=== PATIENT | female | born 1925 | race Caucasian/White ===

== ENCOUNTER 2016-12-22 11:47 | Observation (INO) ==
[2016-12-22] MEDS ORDERED: Ipratropium/Albuterol Neb 3 ML IH ONE (12:26)
[2016-12-22 12:51] LABS: Hematocrit 34.5 % (35.3-44.9); Mean Corpuscular HGB Conc 31.9 g/dL (31.6-35.5); Mean Corpuscular Hemoglobin 28.6 pg (28.0-33.3); Mean Corpuscular Volume 89.6 fL (83.0-100.0); Mean Platelet Volume 10.6 fL (9.4-12.4); Platelet Count 184 K/mcL (140-400); Red Blood Count 3.85 M/mcL (3.82-4.97); Red Cell Distribution Width 13.8 % (11.5-14.5)
[2016-12-22 13:03] LABS: INR 1.2; Prothrombin Time 13.1 Seconds (9.4-12.1)
[2016-12-22 13:04] LABS: BUN/Creatinine Ratio 36 (6-26); Blood Urea Nitrogen 22 mg/dL (7-20); Calcium 8.5 mg/dL (8.6-10.8); Carbon Dioxide 23 mEq/L (19-29); Chloride 105 mEq/L (98-109); Glucose 118 mg/dL (70-99); Osmolality,Calculated 288 (280-300); Potassium 4.1 mEq/L (3.5-4.5); Sodium 137 mEq/L (136-145); eGFR For African Americans > 60 (> 60); eGFR For Non-African Americans > 60 (> 60)
[2016-12-22 13:19] LABS: Lymphocytes # 1.4 K/mcL (0.6-4.6); Macrocytosis Present (Not Present); Neutrophils # 8.7 K/mcL (1.6-8.9); Platelet Estimate Normal (Normal)
[2016-12-22 13:20] LABS: Anisocytosis 1+ (Not Present)
[2016-12-22 13:25] LABS: Activated Partial Thrombo Time 16.6 Seconds (26.0-36.0)
--- NOTE | 2016-12-22 13:52 | Emergency Department Note ---
Disposition Clinical Impression: Influenza A Disposition: Admitted As Inpatient Referrals: Nayeli Murillo DO [Primary Care Provider] - Forms: ED Satisfaction Letter URI/Sore Throat HPI - General Chief Complaint: ED Fever Stated Complaint: cold/fever Time Seen by Provider: 12/22/16 11:55 Source: patient Limitations: other Nursing Notes Reviewed: Yes Vital Signs Reviewed: Yes - History of Present Illness Pt Subjective Complaint: fever, cough Onset (ago): day(s) (1) Duration: constant Severity: moderate Improves with: nothing Worsens with: nothing Associated symptoms: Reports: fever, chills, myalgias, nasal congestion, sore throat Treatments prior to arrival: none - Related Data Home Medications Medication Instructions Recorded Confirmed Atenolol 10/12/15 GlipiZIDE 10/12/15 Insulin 10/12/15 Librium 10/12/15 Lisinopril 10/12/15 Nitrofurantoin 10/12/15 Previous Rx's Medication Instructions Recorded Fluticasone Propionate Nasal 2 spray NS DAILY 7 Days 08/17/15 [Flonase] Meclizine [Antivert] 12.5 mg PO TID 10 Days 08/17/15 Nitrofurantoin (BID) [Macrobid] 100 mg PO BID 5 Days 12/01/15 Phenazopyridine [Pyridium] 100 mg PO TID 2 Days 12/01/15 Levofloxacin [Levaquin] 500 mg PO DAILY #6 tablet 01/16/16 Allergies Allergy/AdvReac Type Severity Reaction Status Date / Time latex Allergy Hives Verified 12/01/15 19:13 Penicillins Allergy Hives Verified 12/01/15 19:13 Sulfa (Sulfonamide Allergy Hives Verified 12/01/15 19:13 Antibiotics) All systems ED: reviewed and negative except as stated. Constitutional: Reports: fever, chills Gastrointestinal: Denies: nausea, vomiting, diarrhea Integumentary: Denies: rash Neurological: Denies: headache URI PMH - Past Medical History Medical history: Reports: cancer, diabetes, hypertension Psychiatric history: Reports: anxiety, depression - Social History Smoking Status: Never smoker Alcohol use: Reports: none Drug use: Reports: none Physical Exam - General Limitations: other General appearance: alert, in no apparent distress - Head Head exam: atraumatic, normocephalic, normal inspection - Eye Eye exam: Present: normal appearance, PERRL, EOMI - Expanded Eye Exam Pupils: Left: reactive - ENT ENT exam: other (Has rhinorrhea/congestion) - Expanded ENT Exam External ear exam: Present: other (Patient profoundly deaf) Mouth exam: Present: normal external inspection Teeth exam: Present: normal inspection Throat exam: Present: normal inspection - Neck Neck exam: Present: normal inspection, full ROM, trachea midline - Chest Chest inspection: Present: normal inspection, symmetric chest wall rise - Respiratory Respiratory exam: Present: other (Worse rhonchorous cough) - Cardiovascular Cardiovascular exam: Present: regular rate, normal rhythm, normal heart sounds - Abdominal Exam Abdominal exam: Present: soft, Non-Tender. Absent: tenderness, distention, guarding, rebound, rigidity - Extremities Exam Extremities exam: Present: normal inspection, full ROM. Absent: tenderness, pedal edema - Expanded Upper Extremity Exam Shoulder exam: Present: normal inspection, full ROM Arm exam: Present: normal inspection, full ROM Elbow exam: Present: normal inspection, full ROM Forearm/Wrist exam: Present: normal inspection, full ROM Hand exam: Present: normal inspection, full ROM Vascular exam: Normal: capillary refill, radial pulse - Expanded Lower Extremity Exam Hip/Pelvis exam: Present: normal inspection, full ROM Upper leg exam: Present: normal inspection, full ROM Knee exam: Present: normal inspection, full ROM Lower leg exam: Present: normal inspection, full ROM Ankle exam: Present: normal inspection, full ROM Foot/toe exam: Present: normal inspection, full ROM Neurovascular/Tendon exam: Absent: motor deficit, sensory deficit, tendon deficit - Back Exam Back exam: Present: normal inspection, full ROM. Absent: tenderness - Neurological Exam Neurological exam: Present: alert, oriented X3 - Expanded Neurological Exam Patient oriented to: Present: person, place, time Coma Scale Eye Opening: Spontaneous Coma Scale Motor Response: Obeys Commands Coma Scale Verbal Response: Oriented Coma Scale Total: 15 - Psychiatric Psychiatric exam: Present: normal affect, normal mood - Skin Skin exam: Present: warm, dry, intact, normal color Course Vital Signs Temperature 100 F H 12/22/16 11:48 Pulse Rate 90 12/22/16 11:48 Respiratory Rate 20 12/22/16 11:48 Blood Pressure 141/70 12/22/16 11:48 O2 Sat by Pulse Oximetry 92 L 12/22/16 11:48 Temperature 100 F H 12/22/16 11:48 Pulse Rate 90 12/22/16 11:48 Respiratory Rate 16 12/22/16 12:36 Blood Pressure 141/70 12/22/16 11:48 O2 Sat by Pulse Oximetry 96 12/22/16 12:36 Oxygen Delivery Oxygen Delivery Room Air Upper Respiratory Infection - Differential Diagnosis Differential Diagnosis: Likely: upper respiratory infection, otitis media, sinusitis, influenza, pharyngitis, pneumonia, epiglottitis - Lab Data Result diagrams: 12/22/16 12:37 12/22/16 12:37 Lab Results 12/22/16 12/22/16 12/22/16 Range/Units 12:37 12:37 12:37 WBC 10.1 (4.3-11.1) K/mcL RBC 3.85 (3.82-4.97) M/mcL Hgb 11.0 L (11.5-15.4) g/dL Hct 34.5 L (35.3-44.9) % MCV 89.6 (83.0-100.0) fL MCH 28.6 (28.0-33.3) pg MCHC 31.9 (31.6-35.5) g/dL RDW 13.8 (11.5-14.5) % Plt Count 184 (140-400) K/mcL MPV 10.6 (9.4-12.4) fL Seg Neutrophils % 84.0 % Band Neutrophils % 2.0 (0-4) % Lymphocytes % 14.0 % Neutrophils # 8.7 (1.6-8.9) K/mcL Lymphocytes # 1.4 (0.6-4.6) K/mcL Platelet Estimate Normal (Normal) Anisocytosis 1+ A (Not Present) Macrocytosis Present A (Not Present) PT 13.1 H (9.4-12.1) Seconds INR 1.2 APTT 16.6 L (26.0-36.0) Seconds Sodium 137 (136-145) mEq/L Potassium 4.1 (3.5-4.5) mEq/L Chloride 105 (98-109) mEq/L Carbon Dioxide 23 (19-29) mEq/L BUN 22 H (7-20) mg/dL Creatinine 0.61 (0.57-1.11) mg/dL Est GFR ( Amer) > 60 (> 60) Est GFR (Non-Af Amer) > 60 (> 60) BUN/Creatinine Ratio 36 H (6-26) Glucose 118 H (70-99) mg/dL Calculated Osmolality 288 (280-300) Calcium 8.5 L (8.6-10.8) mg/dL Troponin I (0-0.03) ng/mL B-Natriuretic Peptide (0-100) pg/mL 12/22/16 12/22/16 Range/Units 12:37 12:37 WBC (4.3-11.1) K/mcL RBC (3.82-4.97) M/mcL Hgb (11.5-15.4) g/dL Hct (35.3-44.9) % MCV (83.0-100.0) fL MCH (28.0-33.3) pg MCHC (31.6-35.5) g/dL RDW (11.5-14.5) % Plt Count (140-400) K/mcL MPV (9.4-12.4) fL Seg Neutrophils % % Band Neutrophils % (0-4) % Lymphocytes % % Neutrophils # (1.6-8.9) K/mcL Lymphocytes # (0.6-4.6) K/mcL Platelet Estimate (Normal) Anisocytosis (Not Present) Macrocytosis (Not Present) PT (9.4-12.1) Seconds INR APTT (26.0-36.0) Seconds Sodium (136-145) mEq/L Potassium (3.5-4.5) mEq/L Chloride (98-109) mEq/L Carbon Dioxide (19-29) mEq/L BUN (7-20) mg/dL Creatinine (0.57-1.11) mg/dL Est GFR ( Amer) (> 60) Est GFR (Non-Af Amer) (> 60) BUN/Creatinine Ratio (6-26) Glucose (70-99) mg/dL Calculated Osmolality (280-300) Calcium (8.6-10.8) mg/dL Troponin I 0.02 (0-0.03) ng/mL B-Natriuretic Peptide 410 H (0-100) pg/mL
[2016-12-22] MEDS ORDERED: Naloxone 0.4 MG/ML INJ IVP PRN (14:29)
--- NOTE | 2016-12-22 14:40 | Internal Med History&Physical ---
Date of Encounter: 12/22/16 Time of Encounter: 14:36 Assessment and Plan (1) Influenza A Current visit: Yes Status: Acute Patient presents with fever, chills, cough, body aches. Flu swab positive for influenza A. Tamiflu 75mg BID IV fluids 0.9NS at 75mL/hr Tyelenol and ibuprofen for body aches (2) Cough Current visit: Yes Status: Acute Patient with cough and expiratory wheezes related to her diagnosis of flu. Duoneb treatments QID. (3) Hypertension Current visit: Yes Status: Acute Continue home doses of atenolol and lisinopril. Qualifiers: Hypertension type: essential hypertension Qualified Code(s): I10 - Essential (primary) hypertension (4) Type 2 diabetes mellitus Current visit: Yes Status: Acute Diabetic diet check blood sugars ACHS Continue home basal dose of insulin 28u HS Sliding scale correction dose ACHS hypoglycemic protocol. Qualifiers: Diabetes mellitus complication status: without complication Diabetes mellitus terminal block assembler insulin use: with [facility] use Qualified Code(s): E11.9 - Type 2 diabetes mellitus without complications; Z79.4 - terminal operations supervisor (current) use of insulin (5) DVT prophylaxis Current visit: Yes Status: Acute ambulate with assistance anti-embolic stockings Lovenox 40mg SQ daily Internal Medicine - H&P: HPI Chief complaint: fever, cough Admitted From: Emergency Dept Plans for Post Hospital Care: Home History of present illness: Ms. Morrison is a 89 year old female with hypertension, and diabetes presented to the emergency department today with complaints of fever and cough. Patient reports that she has been having symptoms for a week and a half now with sinus drainage, cough, sore throat and she was put on an antibiotic for sinusitis. She reports her symptoms seemed to return and worsen last evening and she had a fever, chills, nausea, body aches in addition to her upper respiratory symptoms. She denies any chest pain, palpitations, shortness of breath. Evaluation in the emergency department included a chest x-ray which showed no acute cardiopulmonary disease, flu swab was positive for influenza A. She was febrile with a temperature of 100. On exam patient is alert and oriented, in no acute distress. Lungs have diffuse bilateral expiratory wheezes. Heart has regular rate and rhythm. Past Med Surg Social Fam HX - Past Medical History Medical history: cancer (remote breast cancer), diabetes, hypertension Psychiatric history: anxiety, depression - Past Surgical History Surgical History: breast surgery (remote mastectomy for breast cancer), other ( bladder surgery) - Social History Smoking Status: Never smoker Smokeless Tobacco Status: No Alcohol use: none Drug use: none Internal Medicine - H&P: Meds Atenolol [Tenormin] 25 mg PO DAILY 12/22/16 [History] Cephalexin [Cephalexin] 500 mg PO BID 12/22/16 [History] Chlordiazepoxide HCl 5 mg PO BID 12/22/16 [History] Fluticasone Propionate Nasal [Flonase] 1 spray NS BID 12/22/16 [History] GlipiZIDE [Glipizide] 10 mg PO DAILY 12/22/16 [History] Insulin Glargine,Hum.rec.anlog [Lantus Solostar] 28 units SQ DAILY 12/22/16 [ History] Lisinopril [Lisinopril] 40 mg PO BID 12/22/16 [History] Rosuvastatin Calcium [Rosuvastatin Calcium] 5 mg PO DAILY 12/22/16 [History] Trimethoprim [Trimethoprim] 100 mg PO DAILY 12/22/16 [History] Allergies latex Allergy (Verified 12/22/16 14:06) Hives Penicillins Allergy (Verified 12/22/16 14:06) Hives Sulfa (Sulfonamide Antibiotics) Allergy (Verified 12/22/16 14:06) Hives All Systems PM: A 10-system review of systems was performed and is negative for pertinent findings except as documented above in the HPI. - Constitutional Constitutional: chills, fever(s), malaise, no night sweats - EENT Eyes: no change in vision, no discharge, no pain, no photophobia Ears: ear pain, no ear discharge, no tinnitus Nose, mouth and throat: nasal congestion, nasal discharge, post-nasal drip, sinus pressure, sore throat, no dysphagia, no neck pain - Cardiovascular Cardiovascular ROS IM: no chest pain, no diaphoresis, no dyspnea, no lightheadedness, no palpitations, no syncope - Respiratory Respiratory: cough, excessive phlegm production, no dyspnea, no wheezing - Gastrointestinal Gastrointestinal: nausea, no abdominal pain, no diarrhea, no hematemesis, no hematochezia, no melena, no vomiting - Genitourinary Genitourinary: urinary frequency (reports chronic bladder spasms), no change in urinary stream, no dysuria, no flank pain, no hematuria - Musculoskeletal Musculoskeletal ROS IM: no numbness, no tingling - Integumentary Integumentary IM: no rash, no unusual bruising - Neurological Neurological ROS: no confusion, no convulsions, no focal weakness, no numbness, no tingling, no tremor(s) - Hematologic/Lymphatic Hematologic/Lymphatic: no easy bruising - Constitutional Vitals: Temp Pulse Resp BP Pulse Ox 100 F H 90 18 134/73 96 12/22/16 11:48 12/22/16 11:48 12/22/16 14:23 12/22/16 14:23 12/22/16 12:36 General appearance: Present: A&O X 3, no acute distress - Head Head exam: Present: atraumatic, normocephalic - Eye Eye exam: Present: PERRL, conjuntiva pink, sclera anicteric Pupils: Present: PERRL - Expanded ENT Exam Throat exam: Present: post pharyngeal erythema - Neck Neck exam general surgery: Present: supple, trachea midline. Absent: lymphadenopathy - Respiratory Respiratory exam: Present: wheezes (bilateral expiratory). Absent: accessory muscle use, rales, rhonchi - Cardiovascular Cardiovascular exam: Present: RRR, +S1, +S2. Absent: diastolic murmur, gallop, rubs, systolic murmur - GI/Abdominal GI/Abdominal exam: Present: normal bowel sounds, soft, no peritoneal signs. Absent: distended, tenderness - Extremities Exam Extremities exam: Present: warm, radial pulses palpable and symetrical. Absent : calf tenderness, cyanotic, pedal edema - Neurological Exam Neurological exam: Present: CN II-XII intact, oriented X3, no focal deficits. Absent: facial droop, speech deficit - Skin Skin exam: Present: dry, intact Internal Med - H&P Results - Labs CBC & Chem 7: 12/22/16 12:37 12/22/16 12:37 Labs: All Lab Results (24 Hours) 12/22/16 12/22/16 12/22/16 Range/Units 12:37 12:37 12:37 WBC 10.1 (4.3-11.1) K/mcL RBC 3.85 (3.82-4.97) M/mcL Hgb 11.0 L (11.5-15.4) g/dL Hct 34.5 L (35.3-44.9) % MCV 89.6 (83.0-100.0) fL MCH 28.6 (28.0-33.3) pg MCHC 31.9 (31.6-35.5) g/dL RDW 13.8 (11.5-14.5) % Plt Count 184 (140-400) K/mcL MPV 10.6 (9.4-12.4) fL Seg Neutrophils % 84.0 % Band Neutrophils % 2.0 (0-4) % Lymphocytes % 14.0 % Neutrophils # 8.7 (1.6-8.9) K/mcL Lymphocytes # 1.4 (0.6-4.6) K/mcL Platelet Estimate Normal (Normal) Anisocytosis 1+ A (Not Present) Macrocytosis Present A (Not Present) PT 13.1 H (9.4-12.1) Seconds INR 1.2 APTT 16.6 L (26.0-36.0) Seconds Sodium 137 (136-145) mEq/L Potassium 4.1 (3.5-4.5) mEq/L Chloride 105 (98-109) mEq/L Carbon Dioxide 23 (19-29) mEq/L BUN 22 H (7-20) mg/dL Creatinine 0.61 (0.57-1.11) mg/dL Est GFR ( Amer) > 60 (> 60) Est GFR (Non-Af Amer) > 60 (> 60) BUN/Creatinine Ratio 36 H (6-26) Glucose 118 H (70-99) mg/dL Calculated Osmolality 288 (280-300) Calcium 8.5 L (8.6-10.8) mg/dL Troponin I (0-0.03) ng/mL B-Natriuretic Peptide (0-100) pg/mL 12/22/16 12/22/16 Range/Units 12:37 12:37 WBC (4.3-11.1) K/mcL RBC (3.82-4.97) M/mcL Hgb (11.5-15.4) g/dL Hct (35.3-44.9) % MCV (83.0-100.0) fL MCH (28.0-33.3) pg MCHC (31.6-35.5) g/dL RDW (11.5-14.5) % Plt Count (140-400) K/mcL MPV (9.4-12.4) fL Seg Neutrophils % % Band Neutrophils % (0-4) % Lymphocytes % % Neutrophils # (1.6-8.9) K/mcL Lymphocytes # (0.6-4.6) K/mcL Platelet Estimate (Normal) Anisocytosis (Not Present) Macrocytosis (Not Present) PT (9.4-12.1) Seconds INR APTT (26.0-36.0) Seconds Sodium (136-145) mEq/L Potassium (3.5-4.5) mEq/L Chloride (98-109) mEq/L Carbon Dioxide (19-29) mEq/L BUN (7-20) mg/dL Creatinine (0.57-1.11) mg/dL Est GFR ( Amer) (> 60) Est GFR (Non-Af Amer) (> 60) BUN/Creatinine Ratio (6-26) Glucose (70-99) mg/dL Calculated Osmolality (280-300) Calcium (8.6-10.8) mg/dL Troponin I 0.02 (0-0.03) ng/mL B-Natriuretic Peptide 410 H (0-100) pg/mL
[2016-12-22] MEDS ORDERED: *HR* Dextrose 50 % in Water (Syg) 50 ML SYRINGE IVP PRN (14:49)
[2016-12-22] MEDS ORDERED: Dextrose Gel 15 GM PO PRN ×2 (14:49)
[2016-12-22] MEDS ORDERED: D5% in Water 1,000 ML IV PRN (14:49)
[2016-12-22 15:42] LABS: Hemoglobin A1C 6.7 %
[2016-12-22] MEDS: 0.9 % Sodium Chloride 1,000 ML IVC SCH (16:02)
[2016-12-22] MEDS: Ipratropium/Albuterol Neb 3 ML IH SCH ×2 (16:25→20:19)
[2016-12-22] MEDS ORDERED: Acetaminophen 325 MG TABLET PO PRN (16:37)
[2016-12-22] MEDS: Ibuprofen 400 MG TABLET PO PRN (17:57)
[2016-12-22] MEDS: Insulin LISPRO 300 UNITS/3 ML VIAL SQ SCH ×2 (17:58→22:13)
[2016-12-22] MEDS: cephALEXin 500 MG CAPSULE PO SCH (22:18)
[2016-12-22] MEDS: Lisinopril 20 MG TABLET PO SCH (22:18)
[2016-12-22] MEDS: Insulin DETEMIR 100 UNIT/ML X5UNITS SQ SCH (22:19)
[2016-12-23] MEDS: Ipratropium/Albuterol Neb 3 ML IH SCH ×4 (04:07→21:10)
[2016-12-23] MEDS: *HR* Enoxaparin 40 MG/0.4 ML SYRINGE SQ SCH (05:57)
[2016-12-23] MEDS: 0.9 % Sodium Chloride 1,000 ML IVC SCH (05:57)
[2016-12-23] MEDS: Ibuprofen 400 MG TABLET PO PRN (05:57)
[2016-12-23 06:07] LABS: BUN/Creatinine Ratio 32 (6-26); Blood Urea Nitrogen 18 mg/dL (7-20); Calcium 7.9 mg/dL (8.6-10.8); Carbon Dioxide 22 mEq/L (19-29); Chloride 106 mEq/L (98-109); Glucose 76 mg/dL (70-99); Osmolality,Calculated 283 (280-300); Potassium 3.9 mEq/L (3.5-4.5); Sodium 136 mEq/L (136-145); eGFR For African Americans > 60 (> 60); eGFR For Non-African Americans > 60 (> 60)
[2016-12-23 06:51] LABS: Basophils % 0.1 %; Eosinophils % 0.4 %; Hematocrit 32.2 % (35.3-44.9); Hemoglobin 10.1 g/dL (11.5-15.4); Immature Granulocytes % 0.5 % (0-4); Immature Platelets 2.6 % (1.1-6.1); Lymphocytes # 1.7 K/mcL (0.6-4.6); Mean Corpuscular HGB Conc 31.4 g/dL (31.6-35.5); Mean Corpuscular Hemoglobin 28.5 pg (28.0-33.3); Mean Platelet Volume 10.3 fL (9.4-12.4); Monocytes % 10.4 %; Neutrophils # 6.5 K/mcL (1.6-8.9); Platelet Count 154 K/mcL (140-400); Red Blood Count 3.54 M/mcL (3.82-4.97); Segmented Neutrophils % 70.6 %
[2016-12-23 07:08] LABS: Platelet Estimate Normal (Normal)
[2016-12-23] MEDS: Insulin LISPRO 300 UNITS/3 ML VIAL SQ SCH ×4 (07:57→22:14)
[2016-12-23] MEDS: Oseltamivir Phosphate 30 MG CAPSULE PO SCH ×2 (10:29→20:44)
[2016-12-23] MEDS: cephALEXin 500 MG CAPSULE PO SCH (10:29)
[2016-12-23] MEDS: Lisinopril 20 MG TABLET PO SCH ×2 (10:29→20:44)
[2016-12-23] MEDS: TRIMETHOPRIM 100 MG PO SCH (10:30)
[2016-12-23] MEDS ORDERED: Acetaminophen 325 MG TABLET PO PRN (11:34)
[2016-12-23] MEDS ORDERED: Loratadine/Pseudophed (12 HR) 1 EACH TABLET PO SCH (11:45)
--- NOTE | 2016-12-23 11:50 | Electrocardiograph Report ---
[place] [id number] Test Date: 2016-12-22 Pat Name: Maria Guadalupe Morrison Department: 103 Room: 3A Gender: F Student Officer: : [id number] Requested By: Kilo Cosme Order Number: [id number] Reading MD: Jeffrey Mcguire MD Measurements Intervals [place] Rate: 84 P: 22 VT: 201 QRS: 23 QRSD: 94 T: 47 QT: 347 QTc: 388 Interpretive Statements SINUS RHYTHM Electronically Signed On 12-23-2016 11:48:42 EST by Jeffrey Mcguire MD
[2016-12-23] MEDS ORDERED: Furosemide 20 MG/2 ML VIAL IVP ONE (18:50)
[2016-12-23] MEDS: Cefuroxime PO 500 MG TABLET PO SCH (19:00)
--- NOTE | 2016-12-23 19:22 | Internal Med Progress Note ---
Date of Encounter: 12/23/16 Time of Encounter: 12:15 - Assessment and plan (1) Sinusitis Current Visit: Yes Status: Acute Qualifiers: Sinusitis location: unspecified location Chronicity: acute Qualified Code (s): J01.90 - Acute sinusitis, unspecified (2) Left ear pain Current Visit: Yes Status: Acute (3) Hypertension Current Visit: Yes Status: Acute Qualifiers: Hypertension type: essential hypertension Qualified Code(s): I10 - Essential (primary) hypertension (4) Influenza A Current Visit: Yes Status: Acute - Time Spent With Patient add cefuroxime, Ciprodex eardrops for acute otitis media and otitis externa, continue Tamiflu. add aersol treatment and mucinex . discussed with daughter. Will resume Librium 25 - 35 minutes - Subjective Interval history: patient complaint of generalized weakness and tiredness , post nasal drip , Marked decrease oral intake . Pain in her Left ear , Dry cough and sob - Constitutional Vitals: Temp Pulse Resp BP Pulse Ox 99.1 F 67 16 135/73 96 12/23/16 15:16 12/23/16 15:16 12/23/16 15:16 12/23/16 15:16 12/23/16 15:16 General appearance: Present: A&O X 3, no acute distress - Head Head exam: Present: atraumatic, normocephalic - Neck Neck exam general surgery: Present: supple, trachea midline. Absent: lymphadenopathy - Respiratory Respiratory exam: Present: decreased breath sounds, prolonged expiratory phase, rales, wheezes. Absent: accessory muscle use, rhonchi - Cardiovascular Cardiovascular exam: Present: RRR, +S1, +S2. Absent: diastolic murmur, gallop, rubs, systolic murmur - GI/Abdominal GI/Abdominal exam: Present: normal bowel sounds, soft, no peritoneal signs. Absent: distended, tenderness - Extremities Exam Extremities exam: Present: warm, radial pulses palpable and symetrical. Absent : calf tenderness, cyanotic, pedal edema - Skin Skin exam: Present: dry, intact Internal Medicine: Result - Labs CBC & Chem 7: 12/23/16 06:35 12/23/16 04:55 Labs: Short CBC 12/23/16 Range/Units 06:35 WBC 9.2 (4.3-11.1) K/mcL Hgb 10.1 L (11.5-15.4) g/dL Hct 32.2 L (35.3-44.9) % Plt Count 154 (140-400) K/mcL Neutrophils # 6.5 (1.6-8.9) K/mcL BMP 12/23/16 04:55 Sodium 136 Potassium 3.9 Chloride 106 Carbon Dioxide 22 BUN 18 Creatinine 0.56 L Glucose 76 Calcium 7.9 L - ABG Interpretation ABG results: PT/INR, D-dimer PT 13.1 Seconds (9.4-12.1) H 12/22/16 12:37 - VTE Documentation of Mechanical Device: Graduated compression elastic hosiery Consult Discharge Plan - Plan Referrals: Nayeli Murillo DO [Primary Care Provider] -
[2016-12-23] MEDS ORDERED: Saline Nasal Spray 44 ML BOTTLE NS PRN (19:30)
[2016-12-23] MEDS: Mirtazapine 15 MG TABLET PO SCH (20:44)
[2016-12-23] MEDS: Loratadine 10 MG TABLET PO SCH ×2 (20:44→21:18)
[2016-12-23] MEDS: Ciprofloxacin/Dex *EAR* Susp 7.5 ML BOTTLE LEFT EAR SCH (21:16)
[2016-12-23] MEDS: Insulin DETEMIR 100 UNIT/ML X5UNITS SQ SCH (22:17)
[2016-12-23] MEDS ORDERED: Ibuprofen 400 MG TABLET PO PRN (22:33)
[2016-12-24] MEDS: Ipratropium/Albuterol Neb 3 ML IH SCH ×4 (05:55→22:08)
[2016-12-24] MEDS: *HR* Enoxaparin 40 MG/0.4 ML SYRINGE SQ SCH (06:17)
[2016-12-24] MEDS: Cefuroxime PO 500 MG TABLET PO SCH ×2 (06:17→17:28)
[2016-12-24] MEDS: TRIMETHOPRIM 100 MG PO SCH (07:30)
[2016-12-24] MEDS: Insulin LISPRO 300 UNITS/3 ML VIAL SQ SCH ×4 (07:40→21:12)
[2016-12-24] MEDS: Oseltamivir Phosphate 30 MG CAPSULE PO SCH ×2 (08:06→21:07)
[2016-12-24] MEDS: Loratadine 10 MG TABLET PO SCH (08:07)
[2016-12-24] MEDS: Lisinopril 20 MG TABLET PO SCH ×2 (08:08→21:07)
[2016-12-24] MEDS: Ciprofloxacin/Dex *EAR* Susp 7.5 ML BOTTLE LEFT EAR SCH ×2 (08:10→21:17)
[2016-12-24] MEDS ORDERED: Furosemide 20 MG/2 ML VIAL IVP ONE (11:27)
[2016-12-24] MEDS ORDERED: Furosemide 20 MG/2 ML VIAL IVP STA (12:43)
--- NOTE | 2016-12-24 12:47 | Internal Med Progress Note ---
Date of Encounter: 12/24/16 Time of Encounter: 12:00 - Assessment and plan (1) Sinusitis Current Visit: Yes Status: Acute Qualifiers: Sinusitis location: unspecified location Chronicity: acute Qualified Code (s): J01.90 - Acute sinusitis, unspecified (2) Left ear pain Current Visit: Yes Status: Acute (3) Hypertension Current Visit: Yes Status: Acute Qualifiers: Hypertension type: essential hypertension Qualified Code(s): I10 - Essential (primary) hypertension (4) Influenza A Current Visit: Yes Status: Acute (5) Volume overload Current Visit: Yes Status: Acute Qualifiers: Hypervolemia type: other Qualified Code(s): E87.79 - Other fluid overload - Time Spent With Patient we will add another dose of Lasix, continue Mucinex,continue Nasonex and saline nasal spray , ambulate, chest physiotherapy, 25 - 35 minutes - Subjective Interval history: patient continued to have shortness of Breath and wheezing. patient denies any nausea or vomiting. left ear pain is improving. Some improvement of postnasal dripp - Constitutional Vitals: Temp Pulse Resp BP Pulse Ox 98.2 F 81 16 148/73 98 12/24/16 11:32 12/24/16 11:32 12/24/16 11:32 12/24/16 11:32 12/24/16 11:32 General appearance: Present: no acute distress - Head Head exam: Present: atraumatic, normocephalic - Neck Neck exam general surgery: Present: supple, trachea midline. Absent: lymphadenopathy - Respiratory Respiratory exam: Present: decreased breath sounds, prolonged expiratory phase, rales (diffuse wheezing and rales bilateral lung [place]), rhonchi, wheezes. Absent: accessory muscle use - GI/Abdominal GI/Abdominal exam: Present: normal bowel sounds, soft, no peritoneal signs. Absent: distended - Extremities Exam Extremities exam: Present: warm, radial pulses palpable and symetrical. Absent : calf tenderness, cyanotic, pedal edema - Neurological Exam Neurological exam: Present: CN II-XII intact, no focal deficits. Absent: pronater drift, facial droop, speech deficit - Skin Skin exam: Present: dry, intact Internal Medicine: Result - Labs CBC & Chem 7: 12/23/16 06:35 12/23/16 04:55 - ABG Interpretation ABG results: PT/INR, D-dimer PT 13.1 Seconds (9.4-12.1) H 12/22/16 12:37 - VTE Documentation of Mechanical Device: Graduated compression elastic hosiery Consult Discharge Plan - Plan Referrals: Nayeli Murillo DO [Primary Care Provider] -
[2016-12-24 13:32] LABS: Basophils % 0.1 %; Eosinophils % 0.2 %; Hematocrit 32.6 % (35.3-44.9); Hemoglobin 10.4 g/dL (11.5-15.4); Immature Granulocytes % 0.3 % (0-4); Lymphocytes # 1.8 K/mcL (0.6-4.6); Lymphocytes % 19.9 %; Mean Corpuscular HGB Conc 31.9 g/dL (31.6-35.5); Mean Corpuscular Hemoglobin 28.8 pg (28.0-33.3); Mean Corpuscular Volume 90.3 fL (83.0-100.0); Mean Platelet Volume 10.5 fL (9.4-12.4); Monocytes # 0.8 K/mcL (0.0-1.3); Monocytes % 8.2 %; Neutrophils # 6.5 K/mcL (1.6-8.9); Platelet Count 170 K/mcL (140-400); Red Blood Count 3.61 M/mcL (3.82-4.97); Red Cell Distribution Width 14.1 % (11.5-14.5); Segmented Neutrophils % 71.3 %
[2016-12-24 13:46] LABS: BUN/Creatinine Ratio 33 (6-26); Blood Urea Nitrogen 23 mg/dL (7-20); Calcium 8.2 mg/dL (8.6-10.8); Carbon Dioxide 27 mEq/L (19-29); Chloride 101 mEq/L (98-109); Glucose 200 mg/dL (70-99); Magnesium 1.5 mg/dL (1.6-2.6); Osmolality,Calculated 291 (280-300); Phosphorous 2.7 mg/dL (2.3-4.7); Potassium 3.8 mEq/L (3.5-4.5); Sodium 136 mEq/L (136-145); eGFR For African Americans > 60 (> 60); eGFR For Non-African Americans > 60 (> 60)
[2016-12-24] MEDS ORDERED: Insulin DETEMIR 100 UNIT/ML X5UNITS SQ SCH (21:00)
[2016-12-24] MEDS: Mirtazapine 15 MG TABLET PO SCH (21:08)
[2016-12-25] MEDS: Ipratropium/Albuterol Neb 3 ML IH SCH ×3 (03:43→16:57)
[2016-12-25] MEDS: *HR* Enoxaparin 40 MG/0.4 ML SYRINGE SQ SCH (06:20)
[2016-12-25] MEDS: Cefuroxime PO 500 MG TABLET PO SCH (06:20)
[2016-12-25] MEDS: Insulin LISPRO 300 UNITS/3 ML VIAL SQ SCH ×2 (08:23→12:35)
[2016-12-25] MEDS: TRIMETHOPRIM 100 MG PO SCH (10:22)
[2016-12-25] MEDS: Oseltamivir Phosphate 30 MG CAPSULE PO SCH (10:29)
[2016-12-25] MEDS: Lisinopril 20 MG TABLET PO SCH (10:30)
[2016-12-25] MEDS: Ciprofloxacin/Dex *EAR* Susp 7.5 ML BOTTLE LEFT EAR SCH (10:30)
[2016-12-25] MEDS: Loratadine 10 MG TABLET PO SCH (10:30)
[2016-12-25 14:52] VITALS: BP 153/74
[2016-12-25] MEDS ORDERED: Magnesium Sulfate 2 GM in D5% in Water 100 ML IVPB ONE (15:35)
--- NOTE | 2016-12-25 16:06 | Physician Discharge Referral ---
ExtendedCare Referral Info Provider in Charge after Transfer: PCP Institutional Level of Care: Skilled - Diagnosis (1) Sinusitis Priority: Primary Status: Acute (2) Left ear pain Priority: Primary Status: Acute (3) Hypertension Priority: Secondary Status: Acute (4) Influenza A Priority: Primary Status: Acute (5) Volume overload Status: Acute Prognosis: Good - Transfer Medications Prescriptions: Cefuroxime PO [Ceftin] 500 mg PO Q12HR #10 tablet Ciprofloxacin/Dex *EAR* Susp [Ciprodex *EAR* Susp] 4 drop LEFT EAR BID #1 bottle GuaiFENesin ER [Mucinex] 600 mg PO BID #20 tbbp.12hr Insulin LISPRO [HumaLOG] 0 units SQ TIDAC #2 vial Ipratropium/Albuterol Neb [Duoneb] 3 ml IH TID #40 inhsol Loratadine [Claritin] 5 mg PO DAILY #30 tablet Oseltamivir Phosphate [Tamiflu] 30 mg PO BID #10 capsule Saline Nasal Russell [[place] Nasal Russell] 2 spray NS Q2H PRN #2 bottle PRN Reason: Congestion Home Medications: Atenolol [Tenormin] 25 mg PO DAILY 12/22/16 [History] Fluticasone Propionate Nasal [Flonase] 1 spray NS BID 12/22/16 [History] Insulin Glargine,Hum.rec.anlog [Lantus Solostar] 28 units SQ DAILY 12/22/16 [ History] Lisinopril 40 mg PO BID 12/22/16 [History] Rosuvastatin Calcium 5 mg PO DAILY 12/22/16 [History] Cefuroxime PO [Ceftin] 500 mg PO Q12HR #10 tablet 12/25/16 [Rx] Chlordiazepoxide HCl 5 mg PO HS #30 12/25/16 [Rx] Ciprofloxacin/Dex *EAR* Susp [Ciprodex *EAR* Susp] 4 drop LEFT EAR BID #1 bottle 12/25/16 [Rx] GlipiZIDE [Glipizide] 10 mg PO DAILY #30 12/25/16 [Rx] GuaiFENesin ER [Mucinex] 600 mg PO BID #20 tbbp.12hr 12/25/16 [Rx] Insulin LISPRO [HumaLOG] 0 units SQ TIDAC #2 vial 12/25/16 [Rx] Ipratropium/Albuterol Neb [Duoneb] 3 ml IH TID #40 inhsol 12/25/16 [Rx] Loratadine [Claritin] 5 mg PO DAILY #30 tablet 12/25/16 [Rx] Oseltamivir Phosphate [Tamiflu] 30 mg PO BID #10 capsule 12/25/16 [Rx] Saline Nasal Russell [[place] Nasal Russell] 2 spray NS Q2H PRN #2 bottle 12/25/16 [Rx ] Allergies/Adverse Reactions: Allergies acetaminophen [From Tylenol] Allergy (Verified 12/23/16 06:32) Vomiting latex Allergy (Verified 12/22/16 14:06) Hives Penicillins Allergy (Verified 12/22/16 14:06) Hives Sulfa (Sulfonamide Antibiotics) Allergy (Verified 12/22/16 14:06) Hives - Respiratory Orders Smoking Cessation: Smoking cessation has been advised. For more information, call the [place] Tobacco Quit Line at 2-093-NZIB-NOW. - Rehabiliation Orders Rehab Potential: Good Rehab Orders: Evaluation for Physical Therapy, Evaluation for Occupational Therapy - Diet Orders Regular (Diabetic) CERTIFICATION: I certify that the transfer of the above named patient to an Extended Care Facility is necessary for the continuing treatment of the diagnosis listed. The above information is true and accurate reflection of patient's current condition. Confidential - Redisclosure prohibited without a patient's written consent.
--- NOTE | 2016-12-25 16:08 | Discharge Summary ---
Date of Encounter: 12/25/16 Time of Encounter: 16:07 - Discharge Diagnosis (1) Sinusitis Priority: Secondary Status: Acute Qualifiers: Sinusitis location: unspecified location Chronicity: acute Qualified Code (s): J01.90 - Acute sinusitis, unspecified (2) Left ear pain Priority: Secondary Status: Acute (3) Hypertension Priority: Secondary Status: Acute Qualifiers: Hypertension type: essential hypertension Qualified Code(s): I10 - Essential (primary) hypertension (4) Influenza A Priority: Primary Status: Acute (5) Volume overload Priority: Secondary Status: Acute Qualifiers: Hypervolemia type: other Qualified Code(s): E87.79 - Other fluid overload - Discharge Medications Prescriptions: Cefuroxime PO [Ceftin] 500 mg PO Q12HR #10 tablet Ciprofloxacin/Dex *EAR* Susp [Ciprodex *EAR* Susp] 4 drop LEFT EAR BID #1 bottle GuaiFENesin ER [Mucinex] 600 mg PO BID #20 tbbp.12hr Insulin LISPRO [HumaLOG] 0 units SQ TIDAC #2 vial Ipratropium/Albuterol Neb [Duoneb] 3 ml IH TID #40 inhsol Loratadine [Claritin] 5 mg PO DAILY #30 tablet Oseltamivir Phosphate [Tamiflu] 30 mg PO BID #10 capsule Saline Nasal [place] [[place] Nasal [place]] 2 spray NS Q2H PRN #2 bottle PRN Reason: Congestion Home Medications: Atenolol [Tenormin] 25 mg PO DAILY 12/22/16 [History] Fluticasone Propionate Nasal [Flonase] 1 spray NS BID 12/22/16 [History] Insulin Glargine,Hum.rec.anlog [Lantus Solostar] 28 units SQ DAILY 12/22/16 [ History] Lisinopril 40 mg PO BID 12/22/16 [History] Rosuvastatin Calcium 5 mg PO DAILY 12/22/16 [History] Cefuroxime PO [Ceftin] 500 mg PO Q12HR #10 tablet 12/25/16 [Rx] Chlordiazepoxide HCl 5 mg PO HS #30 12/25/16 [Rx] Ciprofloxacin/Dex *EAR* Susp [Ciprodex *EAR* Susp] 4 drop LEFT EAR BID #1 bottle 12/25/16 [Rx] GlipiZIDE [Glipizide] 10 mg PO DAILY #30 12/25/16 [Rx] GuaiFENesin ER [Mucinex] 600 mg PO BID #20 tbbp.12hr 12/25/16 [Rx] Insulin LISPRO [HumaLOG] 0 units SQ TIDAC #2 vial 12/25/16 [Rx] Ipratropium/Albuterol Neb [Duoneb] 3 ml IH TID #40 inhsol 12/25/16 [Rx] Loratadine [Claritin] 5 mg PO DAILY #30 tablet 12/25/16 [Rx] Oseltamivir Phosphate [Tamiflu] 30 mg PO BID #10 capsule 12/25/16 [Rx] Saline Nasal [place] [[place] Nasal [place]] 2 spray NS Q2H PRN #2 bottle 12/25/16 [Rx ] Allergies/Adverse Reactions: Allergies acetaminophen [From Tylenol] Allergy (Verified 12/23/16 06:32) Vomiting latex Allergy (Verified 12/22/16 14:06) Hives Penicillins Allergy (Verified 12/22/16 14:06) Hives Sulfa (Sulfonamide Antibiotics) Allergy (Verified 12/22/16 14:06) Hives Date of admission: 12/22/16 14:09 Primary care physician: Robert Valle Consults: 12/23/16 06:36 Consult to Photographic Plate Maker [CONS] Routine Reason for SW Consult: HOME HEALTH 12/23/16 11:35 Consult to Physical Therapy [CONS] Routine Comment: Evaluate, develop and implement POC Discharging clinician: Santos Pedroza - Patient Status Disposition: Transfer SNF Condition: Good Functional capacity at discharge: uses cane/walker Overall status at discharge: patient is progressing back to baseline - Discharge Instructions Follow Up With: Nayeli Murillo DO [Primary Care Provider] - - Diet and Activity Activity: ambulate only with your walker Diet: diabetic diet Hospital course: Ms. Morrison is a 89 year old female admitted to the hospital with Pneumonia secondary to influnza infection, volume depletion and persistent nausea, Patient was admitted to the hospital ,We started fluid ,Tamaflu, With her hypoxemia we started her on oxygen, scheduled aerosol treatment , had fluid overload responded to diuritics ,had external and middle ear infection ,She responded well to cefuroxim and ciprodex . Her condition continue to improve during hospitalization.Once stable patient was discharged to [facility] in stable condition . - Time Spent with Patient Total time spent providing and/or coordinating discharge services: Greater than 30 minutes - Constitutional Vitals: Temp Pulse Resp BP Pulse Ox 98.1 F 80 20 153/74 98 12/25/16 14:50 12/25/16 14:50 12/25/16 14:50 12/25/16 14:50 12/25/16 14:50 General appearance: Present: no acute distress - VTE Documentation of Mechanical Device: Graduated compression elastic hosiery
== END 2016-12-25 18:00 ==
LOC: EMEROO 11:47 → 3ANU 11:47
PROVIDERS: ADMIT Family Medicine; ATTEND Family Medicine